=== PATIENT | male | born 1945 | race Caucasian/White ===

== ENCOUNTER 2017-01-13 11:54 | Emergency (ER) ==
[2017-01-13 12:07] VITALS: TEMP 97.7; BMI 34.7
[2017-01-13 12:40] LABS: BASOPHILS % (AUTO) 0.2 % (0.0-3.0); EOSINOPHILS # (AUTO) 0.1 K/ul (0.0-0.7); EOSINOPHILS % (AUTO) 0.4 % (0.0-7.0); HEMATOCRIT 44.7 % (42.0-52.0); HEMOGLOBIN 15.1 g/dl (14.0-18.0); IMMATURE GRANULOCYTE % (AUTO) 0.4 % (0.0-5.0); LYMPHOCYTES # (AUTO) 1.3 K/uL (0.60-3.4); LYMPHOCYTES % (AUTO) 11.4 (10.0-50.0); MEAN CORPUSCULAR HEMOGLOBIN 30.4 pg (27.0-31.0); MEAN CORPUSCULAR HGB CONC 33.8 (31.8-35.4); MEAN CORPUSCULAR VOLUME 89.9 fl (80.0-94.0); MONOCYTES # (AUTO) 0.6 K/uL (0.4-2.0); MONOCYTES % (AUTO) 5.8 (0-10); NEUTROPHILS # (AUTO) 9.1 K/ul (2.0-6.9); NEUTROPHILS % (AUTO) 81.8; PLATELET COUNT 193 10^3/uL (140-440); RED BLOOD COUNT 4.97 10^6/ul (4.70-6.10); WHITE BLOOD COUNT 11.13 K/ul (4.2-10.2)
[2017-01-13 12:53] LABS: ALBUMIN 3.6 g/dL (3.4-5.0); ANION GAP 12.5; BILIRUBIN,TOTAL 0.76 mg/dL (0.00-1.20); BUN/CREATININE RATIO 12.5; CALCIUM 9.8 mg/dL (8.2-10.2); CREATININE 0.96 mg/dL (0.60-1.10); POTASSIUM 4.5 mmol/L (3.5-5.1); TOTAL PROTEIN 7.2 g/dL (5.8-8.1)
--- NOTE | 2017-01-13 13:04 | CT ---
EXAM: CT head without contrast. HISTORY: Headache for 2 weeks. COMPARISON: None available. TECHNIQUE: Multiple axial images of the brain were obtained from the skull base through the vertex without intravenous contrast. FINDINGS: There is no intracranial hemorrhage or extraaxial collection. The gomez-white differentia tion is maintained without evidence for acute large vascular territory infarction. The cortical sul ci and basal cisterns are well visualized. There is no hydrocephalus, mass effect, or midline shift . No mucosal thickening noted throughout the maxillary, ethmoid and sphenoid sinuses, greatest in t he left maxillary and right sphenoid sinus. Otherwise, the paranasal sinuses and mastoid air cells are clear. The calvarium is intact. IMPRESSION: 1. No acute intracranial abnormality. 2. Sinusitis.
[2017-01-13 13:09] LABS: ERYTHROCYTE SEDIMENTATION RATE 27 mm/hr (0-15); ESR INTERNAL QC INTERNAL QC VALID
[2017-01-13] MEDS: ZOFRAN 4 MG/2 ML IM STA (13:11)
[2017-01-13] MEDS: MORPHINE 4 MG/ML SYRINGE IM STA ×2 (13:11→15:08)
--- NOTE | 2017-01-13 13:32 | ED.PDOC ---
General ED Provider: Dr. GLENN ROMERO Chief Complaint: Headache Stated Complaint: HEADACHE Time Seen by Physician: 12:00 Mode of Arrival: Walk-In Information Source: Patient Exam Limitations: No limitations Primary Care Provider: VIJI SENA Nursing and Triage Documentation Reviewed and Agree: Yes Neurological Complaint Exam - Headache Complaint/Exam Onset: Gradual Duration: 14 DAYS Symptoms Are: Still present Timing: Intermittent Episodes Lasting: Weeks (X2) Worst Headache Ever: No Initial Severity: Moderate Current Severity: Mild Location: Diffuse Character: Reports: Typical headache Aggravating: Reports: None Alleviating: Reports: None Associated Signs and Symptoms: Denies: Dizziness, Seizure, Nausea, Vomiting, Sinus pressure, Fever, Neck pain, Neck stiffness, Decreased LOC, Visual changes Related History: Reports: Similar episode Related Surgical History: Reports: None SAH Risk Factors: Reports: None Meningitis Risk Factors: Reports: None Review of Systems - Review Of Systems Constitutional: Reports: No symptoms Eyes: Reports: No symptoms Ears, Nose, Mouth, Throat: Reports: No symptoms Respiratory: Reports: No symptoms Cardiac: Reports: No symptoms GI: Reports: No symptoms : Reports: No symptoms Musculoskeletal: Reports: No symptoms Skin: Reports: No symptoms Neurological: Reports: Headache Endocrine: Reports: No symptoms Hematologic/Lymphatic: Reports: No symptoms All Other Systems: Reviewed and Negative Past Medical History - Past Medical History Previously Healthy: No Endocrine: Reports: None Cardiovascular: Reports: Hypertension Respiratory: Reports: None Hematological: Reports: None Gastrointestinal: Reports: None Genitourinary: Reports: None Neuro/Psych: Reports: None Musculoskeletal: Reports: None Cancer: Reports: None - Surgical History General Surgical History: Reports: Unknown - Family History Family History: Reports: Unknown - Social History Smoking Status: Former smoker Hx Substance Use: No Alcohol Screening: None Physical Exam - Physical Exam Appearance: Well-appearing, No pain distress, Well-nourished Eyes: MAURICE, EOMI, Conjunctiva clear ENT: Ears normal, Nose normal, Oropharynx normal Respiratory: Airway patent, Breath sounds clear, Breath sounds equal, Respirations nonlabored Cardiovascular: RRR, Pulses normal, No rub, No murmur GI/: Soft, Nontender, No masses, Bowel sounds normal, No Organomegaly Musculoskeletal: Normal strength, ROM intact, No edema, No calf tenderness Skin: Warm, Dry, Normal color Neurological: Sensation intact, Motor intact, Reflexes intact, Cranial nerves intact, Alert, Oriented Psychiatric: Affect appropriate, Mood appropriate Physician Notification - Case Discussed Physician Notified: NATHEN Time of Notification: 13:36 (PMD WOULD LIKE TO IMPROVE ON B/P HR DISCUSSED HE WOULD LIKE PT TO FOLLOW UP WITH HIM ON MONDAY) Critical Care Note - Critical Care Note Total Time (mins): 0 Course - Course Hematology/Chemistry: 01/13/17 12:30 01/13/17 12:30 Orders, Labs, Meds: Lab Review 01/13/17 12:30 WBC 11.13 H RBC 4.97 Hgb 15.1 Hct 44.7 MCV 89.9 MCH 30.4 MCHC 33.8 RDW Coeff of Jeromy 12.9 Plt Count 193 Immature Gran % (Auto) 0.4 Neut % (Auto) 81.8 Lymph % (Auto) 11.4 [place] % (Auto) 5.8 Eos % (Auto) 0.4 Baso % (Auto) 0.2 Immature Gran # (Auto) 0.1 Neut # 9.1 H Lymph # 1.3 [place] # 0.6 Eos # 0.1 Baso # 0.0 ESR 27 H Sodium 140 Potassium 4.5 Chloride 99 Carbon Dioxide 33 H Anion Gap 12.5 BUN 12 Creatinine 0.96 Estimated GFR (MDRD) 77.00 BUN/Creatinine Ratio 12.50 Glucose 114 Calcium 9.8 Total Bilirubin 0.76 AST 13 L ALT 12 Alkaline Phosphatase 100 Total Protein 7.2 Albumin 3.6 Globulin 3.6 Albumin/Globulin Ratio 1.00 Orders Category Date Time Status CBC W/ AUTO DIFF Stat LAB 01/13/17 12:30 Completed COMPREHENSIVE METABOLIC PANEL Stat LAB 01/13/17 12:30 Completed ESR Stat LAB 01/13/17 12:30 Completed Azithromycin [Zithromax] MEDS 01/13/17 13:28 Discontinued 500 mg PO ONCE STA Lisinopril [Zestril] MEDS 01/13/17 13:28 Discontinued 20 mg PO ONCE STA Morphine Sulfate [Morphine 4 mg/ml Syringe] MEDS 01/13/17 12:25 Discontinued 4 mg IM ONCE STA Ondansetron HCl/Pf [Zofran 4 mg/2 ml] MEDS 01/13/17 12:25 Discontinued 4 mg IM ONCE STA CT HEAD W/O CONTRAST Stat RADS 01/13/17 12:25 Completed Medications Discontinued Medications Generic Name Dose Route Start Last Admin Trade Name Freq PRN Reason Stop Dose Admin Azithromycin 500 mg 01/13/17 13:28 Zithromax PO 01/13/17 13:29 ONCE STA Lisinopril 20 mg 01/13/17 13:28 Zestril PO 01/13/17 13:29 ONCE STA Morphine Sulfate 4 mg 01/13/17 12:25 01/13/17 13:11 Morphine 4 Mg/Ml Syringe IM 01/13/17 12:26 4 mg ONCE STA Administration Ondansetron HCl 4 mg 01/13/17 12:25 01/13/17 13:11 Zofran 4 Mg/2 Ml IM 01/13/17 12:26 4 mg ONCE STA Administration Vital Signs: Temp Pulse Resp BP Pulse Ox 01/13/17 11:58 97.7 F 47 L 20 215/78 H 96 Departure - Departure Time of Disposition: 14:20 Disposition: HOME SELF-CARE Discharge Problem: Headache Instructions: Hypertension (ED) Condition: Good Pt referred to PMD for follow-up: Yes Additional Instructions: Please call your Family Physician as soon as possible to schedule a follow-up appointment. Allergies/Adverse Reactions: Allergies Penicillins Adverse Reaction (Verified 01/13/17 12:08) Home Medications: Ambulatory Orders Clonidine HCl [Catapres] 0.1 mg PO BID 01/13/17 Lisinopril/Hydrochlorothiazide [Lisinopril-Hctz 10-12.5 mg Tab] 1 each PO DAILY 01/13/17 Metoprolol Succinate [Toprol Xl] 50 mg PO DAILY 01/13/17 Disposition Discussed With: Patient
[2017-01-13] MEDS: ZITHROMAX PO STA (13:42)
[2017-01-13] MEDS: ZESTRIL PO STA (13:42)
[2017-01-13 15:11] VITALS: BP 169/72
== END 2017-01-13 15:17 | disposition home or self-care (01) ==
LOC: ED 11:54
DX: R51 Headache (principal); I10 Essential (primary) hypertension
CPT/HCPCS: 36415; 80053; 85025; 85651; 93005; 93010; 96372; 99283

== ENCOUNTER 2017-03-27 11:57 | Outpatient (CLI) | END 2017-03-27 11:58 | LOC: AMBL 11:57 | PROVIDERS: ATTEND Emergency Medicine | DX: R53.1 Weakness (principal) ==

== ENCOUNTER 2022-07-07 12:46 | Observation (INO) ==
[2022-07-07] MEDS ORDERED: BOOSTRIX IM ONE (12:52)
--- NOTE | 2022-07-07 12:58 | ED.PDOC ---
General ED Provider: Dr. JENNIFER ROTH MD Chief Complaint: Fall Stated Complaint: mild to mod dizzy today and trip and fell striking his face, nose bleed stopped, no malocculsion, no loc, gcs 15, +fatigue, hx htn and atrial fib, no dm, cva or mi Time Seen by Provider: 07/07/22 12:52 Primary Care Provider: VIJI SENA Nursing and Triage Documentation Reviewed and Agree: Yes Does patient meet sepsis criteria?: No System Inflammatory Response Syndrome: Not Applicable Sepsis Protocol: For patient's 13 years and over: Temp is 96.8 and below OR 101 and greater Pulse >90 BPM Resp >20/minute Acutely Altered Mental Status Are patient's symptoms suggestive of a new infection, such as: -Pneumonia -Skin, Soft Tissue -Endocarditis -UTI -Bone, Joint Infection -Implantable Device -Acute Abdominal Infection -Wound Infection -Meningitis -Blood Stream Catheter Infection -Unknown Review of Systems Review Of Systems Constitutional: Reports Weakness; Denies Fever Eyes: Denies Vision change Ears, Nose, Mouth, Throat: Reports Nose pain; Denies Throat pain Respiratory: Denies Short of air Cardiac: Denies Chest pain GI: Denies Abdominal pain : Denies Dysuria Musculoskeletal: Reports Back pain; Denies Neck pain Skin: Reports Bruising; Denies Cyanosis Neurological: Denies Cognitive dysfunction or Headache All Other Systems: Other Physical Exam Physical Exam Appearance: Reports Well-nourished Ill-appearing: Mild Pain Distress: Mild Eyes: Reports MAURICE, EOMI and Conjunctiva clear ENT: Reports Epistaxis (no septal hematoma) Neck: Supple Respiratory: Reports Airway patent, Breath sounds clear and Breath sounds equal Cardiovascular: Reports RRR GI/: Reports Soft and Nontender Musculoskeletal: Reports ROM intact Skin: Reports Warm and Dry Neurological: Reports Cranial nerves intact, Alert and Oriented Psychiatric: Reports Affect appropriate Interpretation Radiology Interpretation Radiology Interpretation By: Radiologist Exam Interpreted: CT Scan Xray Comments: nondisplaced fx left ribs 6,7,8 w/o pneumothorax Xray Comments: possible min endplate fx T3 EKG Interpretation Time of EKG #1: 16:06 Interpretation: atrial fib 92, no stemi Critical Care Note Critical Care Note Total Critical Care Time (mins): 0 Course Course Hematology/Chemistry: 07/07/22 13:00 07/07/22 13:00 Orders, Labs, Meds: Lab Review 10/07/07/22 07/07/22 13:00 13:00 13:00 WBC 7.59 RBC 5.14 Hgb 15.5 Hct 48.5 MCV 94.4 H MCH 30.2 MCHC 32.0 RDW Coeff of Jeromy 13.5 Plt Count 167 Immature Gran % (Auto) 0.8 Neut % (Auto) 73.5 Lymph % (Auto) 16.1 [place] % (Auto) 8.3 Eos % (Auto) 0.9 Baso % (Auto) 0.4 Neut # (Auto) 5.6 Lymph # (Auto) 1.2 [place] # (Auto) 0.6 Eos # (Auto) 0.1 Baso # (Auto) 0.0 Immature Gran # (Auto) 0.1 PT 49.1 H INR 5.10 H* Sodium 138.1 Potassium 4.70 Chloride 100.1 Carbon Dioxide 31.5 H Anion Gap 11.20 BUN 22.5 H Creatinine 1.37 H Estimated GFR (MDRD) 50.00 BUN/Creatinine Ratio 16.42 Glucose 108.1 H Lactic Acid Calcium 9.13 Total Bilirubin 0.64 AST 32.7 ALT 25.3 Alkaline Phosphatase 128.0 H Total Creatine Kinase 40.7 L Troponin I Total Protein 6.92 Albumin 3.86 Globulin 3.06 Albumin/Globulin Ratio 1.26 Urine Color Urine Clarity Urine pH Ur Specific [place] Urine Protein Urine Glucose (UA) Urine Ketones Urine Blood Urine Nitrite Urine Bilirubin Urine Urobilinogen Ur Leukocyte Esterase Urine Microscopic RBC Urine Microscopic WBC Ur Squamous Epith Cells 07/07/22 07/07/22 07/07/22 13:00 13:00 15:00 WBC RBC Hgb Hct MCV MCH MCHC RDW Coeff of Jeromy Plt Count Immature Gran % (Auto) Neut % (Auto) Lymph % (Auto) [place] % (Auto) Eos % (Auto) Baso % (Auto) Neut # (Auto) Lymph # (Auto) [place] # (Auto) Eos # (Auto) Baso # (Auto) Immature Gran # (Auto) PT INR Sodium Potassium Chloride Carbon Dioxide Anion Gap BUN Creatinine Estimated GFR (MDRD) BUN/Creatinine Ratio Glucose Lactic Acid 2.19 H Calcium Total Bilirubin AST ALT Alkaline Phosphatase Total Creatine Kinase Troponin I < 0.012 Total Protein Albumin Globulin Albumin/Globulin Ratio Urine Color Yellow Urine Clarity Clear Urine pH 6.5 Ur Specific [place] 1.015 Urine Protein Negative Urine Glucose (UA) Negative Urine Ketones Negative Urine Blood 2+ H Urine Nitrite Negative Urine Bilirubin Negative Urine Urobilinogen 0.2 Ur Leukocyte Esterase Negative Urine Microscopic RBC 5-10 Urine Microscopic WBC 0-2 Ur Squamous Epith Cells 0-2 Orders Category Date Time Status EKG-(ED ONLY) Stat CARDIO 07/07/22 15:04 Ordered CBC W/ AUTO DIFF Stat LAB 07/07/22 13:00 Completed CMP [COMPREHENSIVE METABOLIC PANEL] Stat LAB 07/07/22 13:00 Completed CPK [CREATINE KINASE] Stat LAB 07/07/22 13:00 Completed LACTIC ACID Stat LAB 07/07/22 13:00 Completed PT WITH INR Stat LAB 07/07/22 13:00 Completed SARS COV-2 RNA RAPID ALLISON Stat LAB 07/07/22 15:46 Completed TROPONIN I Stat LAB 07/07/22 13:00 Completed URINALYSIS C & S IF INDICATED Stat LAB 07/07/22 15:00 Completed Clindamycin Phosphate/D5w [Cleocin 300 mg/50 ml D5w] MEDS 07/07/22 15:01 Discontinued 300 mg in 50 ml IV ONCE Diphth,Pertuss(Acell),Tet Vac [Boostrix] MEDS 07/07/22 12:52 Discontinued 0.5 ml IM .ONCE ONE Sodium Chloride 0.9% [Sodium Chloride] 1,000 ml MEDS 07/07/22 13:22 Discontinued IV BOLUS Sodium Chloride 0.9% [Sodium Chloride] 1,000 ml MEDS 07/07/22 15:[address] ABDOMEN/PELVIS WO CONTRAST Stat RADS 07/07/22 12:[address] CERVICAL SPINE W/O CONTRAST Stat RADS 07/07/22 12:[address] CHEST W/O CONTRAST Stat RADS 07/07/22 12:[address] HEAD W/O CONTRAST Stat RADS 07/07/22 12:[address] LUMBAR SPINE W/O CONTRAST Stat RADS 07/07/22 12:[address] MAXILLOFACIAL W/O CONTRAST Stat RADS 07/07/22 12:[address] THORACIC SPINE W/O CONTRAST Stat RADS 07/07/22 12:52 Completed Medications Generic Name Dose Route Start Last Admin Trade Name Freq PRN Reason Stop Dose Admin Sodium Chloride 1,000 mls @ 75 mls/hr 07/07/22 15:15 07/07/22 15:31 Sodium Chloride IV 07/08/22 04:34 75 mls/hr ONCE ONE Administration Discontinued Medications Generic Name Dose Route Start Last Admin Trade Name Sharmin PRN Reason Stop Dose Admin Diphtheria/Pertussis/Tetanus Vacc 0.5 ml 07/07/22 12:52 07/07/22 13:08 Diphth,Pertuss(Acell),Tet Vac 0.5 Ml Disp.Syrin IM 07/07/22 12:53 0.5 ml .ONCE ONE Administration Sodium Chloride 1,000 mls @ 1,000 mls/hr 07/07/22 13:22 07/07/22 13:39 Sodium Chloride IV 07/07/22 14:21 1,000 mls/hr BOLUS STA Administration Clindamycin Phosphate 300 mg in 50 mls @ 75 mls/hr 07/07/22 15:01 07/07/22 15:13 Cleocin 300 Mg/50 Ml D5w IV 07/07/22 15:40 75 mls/hr ONCE ONE Administration Vital Signs: Temp Pulse Resp BP Pulse Ox 07/07/22 12:49 97.9 F 92 18 160/96 H 94 L Discharge Plan Discharge Patient Disposition: PLACED OBSERVATION Discharge Problem: Multiple rib fractures, Coagulopathy, Weakness, Blunt trauma of face Did you review [place] MALE IMPERSONATOR?: Not Applicable ED Provider: JENNIFER ROTH Condition: Stable Physician Progress Note: treatment and disposition d/w Dr Sean, tele admit obs to the hospitalist []
[2022-07-07 13:07] LABS: BASOPHILS % (AUTO) 0.4 % (0.0-3.0); EOSINOPHILS # (AUTO) 0.1 K/ul (0.0-0.7); EOSINOPHILS % (AUTO) 0.9 % (0.0-7.0); HEMATOCRIT 48.5 % (42.0-52.0); HEMOGLOBIN 15.5 g/dl (14.0-18.0); IMMATURE GRANULOCYTE # (AUTO) 0.1 (0.0-1.0); IMMATURE GRANULOCYTE % (AUTO) 0.8 % (0.0-5.0); LYMPHOCYTES # (AUTO) 1.2 K/uL (0.60-3.4); LYMPHOCYTES % (AUTO) 16.1 (10.0-50.0); MEAN CORPUSCULAR HEMOGLOBIN 30.2 pg (27.0-31.0); MEAN CORPUSCULAR VOLUME 94.4 fl (80.0-94.0); MONOCYTES # (AUTO) 0.6 K/uL (0.4-2.0); MONOCYTES % (AUTO) 8.3 (0-10); NEUTROPHILS # (AUTO) 5.6 K/ul (2.0-6.9); NEUTROPHILS % (AUTO) 73.5 % (42.2-75.2); PLATELET COUNT 167 10^3/uL (140-440); RDW COEFFICIENT OF VARIATION 13.5 % (11.6-14.8); RED BLOOD COUNT 5.14 10^6/ul (4.70-6.10); WHITE BLOOD COUNT 7.59 K/ul (4.2-10.2)
[2022-07-07 13:18] LABS: ALANINE AMINOTRANSFERASE 25.3 U/L (0-50); ALBUMIN 3.86 g/dL (3.5-5.0); ASPARTATE AMINO TRANSFERASE 32.7 U/L (17-59); BILIRUBIN,TOTAL 0.64 mg/dL (0.2-1.3); BLOOD UREA NITROGEN 22.5 mg/dL (9-20); CALCIUM 9.13 mg/dL (8.4-10.2); CARBON DIOXIDE 31.5 mmol/L (22-30.0); CHLORIDE 100.1 mmol/L (98-107); CREATINE KINASE 40.7 U/L (55-170); CREATININE 1.37 mg/dL (0.60-1.10); GLUCOSE 108.1 mg/dL (74-106); POTASSIUM 4.7 mmol/L (3.5-5.1); SODIUM 138.1 mmol/L (134.5-145); TOTAL PROTEIN 6.92 g/dL (6.3-8.2)
[2022-07-07] MEDS ORDERED: SODIUM CHLORIDE 1,000 ML IV STA (13:22)
[2022-07-07 13:28] LABS: PROTHROMBIN TIME 49.1 SEC (9.3-11.0)
--- NOTE | 2022-07-07 13:59 | CT ---
EXAM: CT BRAIN HISTORY: Fall TECHNIQUE: CT brain without intravenous contrast. 5-mm axial sections with Reformations. COMPARISON: 01/13/2017 FINDINGS: The brain was unremarkable for age without evidence of hemorrhage or large vessel distribution rece nt ischemic infarction. There is no suggestion of acute hydrocephalus or subdural fluid collection. No mass or mass effect. Cranium has no acute finding. Mastoid processes are aerated. The visualiz ed paranasal sinuses are clear. IMPRESSION: No acute intracranial process or injury. No fracture. All CT scans are performed using dose optimization techniques as appropriate to the performed exam an d include at least one of the following: Automated exposure control, adjustment of the mA and/or kV according t o size, and the use of iterative reconstruction technique.
--- NOTE | 2022-07-07 14:02 | CT ---
EXAM: CT lumbar spine without contrast. HISTORY: Back injury due to a fall. COMPARISON: None. TECHNIQUE: Multiple axial images of the lumbar spine were obtained without intravenous contrast. Im ages were reformatted in the sagittal and coronal planes. FINDINGS: Alignment normal. There is mild right convex curvature centered near the thoracolumbar ju nction. Moderate loss of disc height at L3-4 and L4-5, greater along the right. Mild loss of disc h eight at L2-3, L1-2, T11-12 and T10-11. Vertebral body heights normal without acute fracture. No thompson bluxation. Multilevel disc osteophyte formation and facet arthropathy present. Multilevel central c anal stenosis, mild at L2-3, moderate at L3-4, severe at L4-5. Multilevel neural foraminal narrowing , severe at L4-5 on the right, moderate to severe L4-5 on the left, moderate L3-4 and L2-3 on the rig ht, mild at L2-3 and L3-4 on the left, and moderate at L5-S1 bilaterally. Paravertebral soft tissues demonstrate no acute abnormality. Atherosclerotic calcifications present. IMPRESSION: No acute abnormality of the lumbar spine. All CT scans are performed using dose optimization techniques as appropriate to the performed exam an d include at least one of the following: Automated exposure control, adjustment of the mA and/or kV according t o size, and the use of iterative reconstruction technique.
--- NOTE | 2022-07-07 14:04 | CT ---
EXAM: CT cervical spine. HISTORY: Fall TECHNIQUE: CT cervical spine without contrast. Detailed axial sections. Coronal and sagittal re-fo rmations. COMPARISON: None FINDINGS: No acute fracture is seen. Vertebral body heights are maintained. There is no spondyloli sthesis. Facet joints are covered. The lateral masses of C1 and C2 are normally aligned and the odo ntoid process is intact. Diffuse degenerative disc and facet disease is present, most apparent at C4 - C7 where there is facet arthropathy and posterior disc osteophyte complexes leading to mild centra l canal stenosis and bilateral neural foraminal narrowing. There is no traumatic central canal steno sis or paraspinal hematoma. IMPRESSION: 1. No acute osseous abnormality of the cervical spine. 2. Degenerative disc and facet disease. All CT scans are performed using dose optimization techniques as appropriate to the performed exam an d include at least one of the following: Automated exposure control, adjustment of the mA and/or kV according t o size, and the use of iterative reconstruction technique.
--- NOTE | 2022-07-07 14:08 | CT ---
EXAM: CT of the face without contrast TECHNIQUE: CT of the face was performed without IV contrast. Multiplanar reformats were made. HISTORY: Fall. COMPARISON: CT head 01/13/2017. FINDINGS: Facial bones: No acute fracture demonstrated. Sinuses: Mild mucosal thickening in the paranasal sinuses. Mucous retention cysts in the maxillary s inuses bilaterally. Mastoid air cells are clear. Orbits: Bilateral lens replacements of the globes. No globe rupture or retrobulbar hemorrhage. Soft tissues: Atherosclerotic calcifications of the carotid siphons and carotid bifurcations bilatera lly. Bilateral tonsillar calcifications. IMPRESSION: No acute facial bone fracture. All CT scans are performed using dose optimization techniques as appropriate to the performed exam an d include at least one of the following: Automated exposure control, adjustment of the mA and/or kV according t o size, and the use of iterative reconstruction technique.
--- NOTE | 2022-07-07 14:11 | CT ---
EXAM: CT Abdomen without contrast. CT Pelvis without contrast. HISTORY: Abdominal trauma. COMPARISON: None. TECHNIQUE: Multiple axial images of the abdomen and pelvis were obtained without intravenous contras t. Images were reformatted in the sagittal and coronal plane. FINDINGS: Please note that evaluation of the abdominal and pelvic structures is limited due to lack of intravenous contrast. Heart enlarged. Trace pericardial effusion. Trace bilateral pleural effusions. [facility] for thoracic findings. Degenerative changes throughout the spine. Subtle linear opacity left lateral left sixth rib sagitta l image 69 and seventh rib axial image 11. There is subtle cortical angulation left eighth rib axial image 22. Probable old left ninth rib fracture axial image 19. Gallbladder absent. Liver, pancreas, spleen, adrenal glands, and kidneys demonstrate no acute abnorm ality. There is no bowel obstruction or acute inflammation. Appendix normal. Fatty umbilical hernia withou t inflammation. Bladder normal. No focal prostate abnormality. No free fluid or free air. Atherosclerotic calcifications without abdominal aortic aneurysm. IMPRESSION: 1. No acute post-traumatic abnormality of the abdomen or pelvis.. 2. Nondisplaced left lateral sixth through eighth fractures. All CT scans are performed using dose optimization techniques as appropriate to the performed exam an d include at least one of the following: Automated exposure control, adjustment of the mA and/or kV according t o size, and the use of iterative reconstruction technique.
--- NOTE | 2022-07-07 14:12 | CT ---
EXAM: CT thoracic spine without contrast. HISTORY: Back injury. COMPARISON: Chest radiograph 09/14/2020. TECHNIQUE: Multiple axial images of the thoracic spine were obtained without intravenous contrast. Images were reformatted in the sagittal and coronal planes. FINDINGS: Minimal superior endplate compression deformity of T3, sagittal image 26. Vertebral body heights otherwise normal. Curvature and alignment normal. Mild loss of disc height at multiple leve ls with mild endplate osteophyte formation. Multilevel anterolateral bridging osteophytes at multipl e levels as well consistent with diffuse idiopathic skeletal hyperostosis. Trace amount of pleural f luid bilaterally. No visible pneumothorax. Atherosclerotic calcifications present. IMPRESSION: Minimal T3 superior endplate compression deformity which is age indeterminate. All CT scans are performed using dose optimization techniques as appropriate to the performed exam an d include at least one of the following: Automated exposure control, adjustment of the mA and/or kV according t o size, and the use of iterative reconstruction technique.
--- NOTE | 2022-07-07 14:29 | CT ---
EXAM: CHEST CT WITHOUT CONTRAST HISTORY: Fall. TECHNIQUE: CT acquisition of the chest from the thoracic inlet to the upper abdomen without IV contra st administration. CT Dose Reduction Techniques Performed: Yes. COMPARISON: Chest radiograph 09/14/2020. FINDINGS: Lines, Tubes, Devices: None. Lung Parenchyma and Airways: Central airways are patent. Mild interstitial thickening and centrilobul ar ground-glass mostly in the upper lobes. Peripheral airway thickening in the upper lobes. Mild dep endent atelectasis. Pleural Space: No pleural effusion. No pleural thickening. No pneumothorax. Thoracic Inlet, Mediastinum, and Kristina: Thyroid gland is normal. Calcified granulomas and mediastinal hilar lymph nodes. Heart, Vessels, and Pericardium: No evidence of aortic injury. Mild cardiomegaly with a dilated left atrium. Trace pericardial fluid. Coronary artery calcifications. Scattered atherosclerotic calcificat ions in the aorta and great arch vessels. Bones and Soft Tissues: Nondisplaced left sixth through eighth rib fractures. Diffuse idiopathic ske letal hyperostosis. Nondisplaced fracture through the anterior cortex and vertebral body at T7. No visible fracture of the posterior elements. Slight superior endplate compression of the T3 vertebral body. Chronic-appearing left ninth rib fracture. Multilevel spondylosis. No chest wall hematoma. Upper Abdomen: Calcified granulomas in the liver and spleen. Post cholecystectomy. Also see concurr ent CT of the abdomen and pelvis. IMPRESSION: Nondisplaced left sixth - eighth rib fractures. No pneumothorax. Nondisplaced fracture through the T7 vertebral body in the setting of diffuse idiopathic skeletal hyp erostosis is concerning for "chalk stick" fracture. MRI of the thoracic spine recommended to evaluat e for additional injuries. Mild superior endplate compression deformity at T3, could be an acute fracture. Findings in the upper lobes could represent pulmonary edema or inhalation related inflammatory proces s. Atherosclerosis with coronary artery calcifications. All CT scans are performed using dose optimization techniques as appropriate to the performed exam an d include at least one of the following: Automated exposure control, adjustment of the mA and/or kV according t o size, and the use of iterative reconstruction technique.
[2022-07-07] MEDS ORDERED: CLEOCIN 300 MG/50 ML D5W 300 MG/50 ML BAG IV ONE ×2 (15:01→16:16)
[2022-07-07 15:06] LABS: BILIRUBIN,URINE Negative (NEGATIVE); CLARITY,URINE Clear (CLEAR); COLOR,URINE Yellow (YELLOW); GLUCOSE, URINE (UA) Negative (NEGATIVE); KETONES,URINE Negative (NEGATIVE); LEUKOCYTE ESTERASE ,URINE Negative (NEGATIVE); NITRITE,URINE Negative (NEGATIVE); PH,URINE 6.5 (5-9); PROTEIN,URINE Negative (NEGATIVE); URINE, BLOOD 2+ (NEGATIVE); UROBILINOGEN,URINE 0.2 (0.2)
[2022-07-07 15:11] LABS: SQUAMOUS EPITHELIAL CELL,UR 0-2 (0-5); URINE WBC, MICROSCOPIC 0-2 (0-2)
[2022-07-07] MEDS ORDERED: SODIUM CHLORIDE 1,000 ML IV ONE (15:15)
[2022-07-07] MEDS ORDERED: TYLENOL PO PRN (16:16)
[2022-07-07 20:05] VITALS: BMI 33.4
[2022-07-07] MEDS: BUSPAR PO SCH (21:04)
[2022-07-07] MEDS: SODIUM CHLORIDE 1,000 ML IV SCH (21:07)
[2022-07-08 05:55] LABS: TROPONIN I < 0.012 ng/ml (0.0000-0.120)
[2022-07-08 06:30] LABS: BASOPHILS % (AUTO) 0.3 % (0.0-3.0); EOSINOPHILS # (AUTO) 0.1 K/ul (0.0-0.7); EOSINOPHILS % (AUTO) 1.2 % (0.0-7.0); HEMATOCRIT 48.5 % (42.0-52.0); HEMOGLOBIN 15.5 g/dl (14.0-18.0); IMMATURE GRANULOCYTE % (AUTO) 0.4 % (0.0-5.0); LYMPHOCYTES # (AUTO) 1.5 K/uL (0.60-3.4); LYMPHOCYTES % (AUTO) 13.7 (10.0-50.0); MEAN CORPUSCULAR HEMOGLOBIN 30.6 pg (27.0-31.0); MEAN CORPUSCULAR VOLUME 95.8 fl (80.0-94.0); MONOCYTES % (AUTO) 9.2 (0-10); NEUTROPHILS % (AUTO) 75.2 % (42.2-75.2); PLATELET COUNT 146 10^3/uL (140-440); RDW COEFFICIENT OF VARIATION 13.7 % (11.6-14.8); RED BLOOD COUNT 5.06 10^6/ul (4.70-6.10); WHITE BLOOD COUNT 10.64 K/ul (4.2-10.2)
[2022-07-08 06:51] LABS: ALBUMIN 3.6 g/dL (3.5-5.0); BILIRUBIN,TOTAL 1.4 mg/dL (0.2-1.3); CALCIUM 8.5 mg/dL (8.4-10.2); CREATININE 1.1 mg/dL (0.60-1.10); POTASSIUM 4.4 mmol/L (3.5-5.1); TOTAL PROTEIN 6.3 g/dL (6.3-8.2)
[2022-07-08 07:48] LABS: PROTHROMBIN TIME 47.6 SEC (9.3-11.0)
[2022-07-08] MEDS: BUSPAR PO SCH ×2 (08:44→20:12)
[2022-07-08] MEDS: TOPROL XL PO SCH (08:44)
[2022-07-08] MEDS ORDERED: NORCO 5-325 PO PRN (08:53)
[2022-07-08] MEDS ORDERED: LISINOPRIL HYDROCHLOROTHIAZIDE PO SCH (09:30)
[2022-07-08] MEDS: SODIUM CHLORIDE 1,000 ML IV SCH ×2 (09:31→20:13)
[2022-07-08] MEDS: LASIX TAB PO SCH (09:49)
[2022-07-08] MEDS: ZESTRIL PO SCH (09:49)
--- NOTE | 2022-07-08 10:04 | PCM.PROG ---
Date Seen by Provider: 07/08/22 Time Seen by Provider: 09:10 Subjective: Patient with left sided chest pain with movement and deep inspiration. Denies dyspnea. He remains weak;patient was recently discharged from the hospital after a two week admission for generalized muscle weakness. Tolerating diet. Objective: Vitals: T=97.9 F, P=88, R=18, ZX=360/75, SPO2=96 Chronically ill appearing elderly male. He appears to be weak. Facial abrasions and ecchymosis as well as right sided facial swelling. HEENT: []Oral mucosa moist. Occlusion normal. Neck: []Supple and nontender. Lungs: [] Chest clear and BS equal though decreased on the left side. Moderate left side chest wall tenderness. No crepitus. CVS: [] Atrial fibrillation Abdomen: []Soft, nontender. Extremities: [] Neurological: []Alert and oriented. Skin: [] Lab/Tests/Diagnostic Imaging: [] (1) Multiple rib fractures: Status: Acute Code(s): S22.49XA - Multiple fractures of ribs, unspecified side, initial encounter for closed fracture SNOMED Code(s): 4177860 (2) Coagulopathy: Status: Acute Code(s): D68.9 - Coagulation defect, unspecified SNOMED Code(s): 08531196 (3) Weakness: Status: Acute Code(s): R53.1 - Weakness SNOMED Code(s): 83329434 (4) Blunt trauma of face: Status: Acute Code(s): S09.93XA - Unspecified injury of face, initial encounter SNOMED Code(s): 975422822 Plan: Repeat CXR. Vitamin K for coagulopathy related to warfarin therapy. Will ask PT to see for strengthening and conditioning. Attempt to mobilize patient.
[2022-07-08] MEDS ORDERED: VITAMIN K SUBCUT ONE (10:31)
[2022-07-08] MEDS ORDERED: MEPHYTON PO ONE (12:00)
--- NOTE | 2022-07-08 12:00 | RS.PTINEVL ---
Subjective - Patient information Date of Evaluation: 07/08/22 Date of Arrival on Unit: 07/07/22 Admitted From:: Home Diagnosis: s/p fall, weakness, rib fx Usual Living Arrangement: With Spouse Home Environment: House, Stairs (few) Medical History: Hypertension, CVA/TIA, Diabetes Medical History Comments:: afib, T3 and T7comp fx , rib fx Medications: see chart Subjective Information/ Patient Comments:: pt states that he fell at home. pt is poor historian unable to state whether or not he was using cane or wx. pt only c/o soreness with movement. - Level of function Prior to this admission, the patient could do the following:: Independent Selfcare, Independent ADL's, Independent Ambulation, Participated in Social Activities Outside home Current Level of Function: Partially Dependent Current Equipment Used at Home: pt states he has a walker and cane at home Interventions - Objective Patient Orientation: Person, Place Current Interventions: IV's, Telemetry Observation: pt with swelling to R side of face, bruising Range of Motion - ROM Right Upper Extremity AROM: WFL's Left Upper Extremity AROM: WFL's Right Lower Extremity AROM: WFL's Left Lower Extremity AROM: WFL's Muscle Strength - Muscle Strength Right Upper Extremity Strength: Mild Weakness (grossly 4/5) Left Upper Extremity Strength: Mild Weakness (grossly 4/5) Right Lower Extremity Strength: Mild Weakness (hip flex 4/5, knee flex/ext 4/5, ankle DF/PF 4/5) Left Lower Extremity Strength: Mild Weakness (hip flex 4/5, knee flex/ext 4/5, ankle DF/PF 4/5) Sensation - Sensation Right Upper Extremity Sensation: Intact/Normal Left Upper Extremity Sensation: Intact/Normal Right Lower Extremity Sensation: Intact/Normal Left Lower Extremity Sensation: Intact/Normal Palpation Palpation Findings: Tenderness (tenderness to ribs, face due to fx and bruising) Balance - Sitting Balance and Reactions Static Sitting Balance: Good Dynamic Sitting Balance: Fair - Standing Balance and Reactions Static Standing Balance: Fair (fair-) Dynamic Standing Balance: Poor Standing Equilibrium Reactions: Delayed Left, Delayed Right Standing Protective Reactions: Delayed Left, Delayed Right - Comments Balance Assessment Comments: pt with no scratches or bruising to hands (possible no protective reaction) Functional Mobility - Bed Mobility Comments:: pt seen up in chair. - Transfers Sit to Stand: CGA, Min Assist Stand to Sit: CGA, Min Assist - Safety Awareness Safety Awareness: Poor WILLIAN INDEX SCORE: n/a Ambulation - Ambulation Assistive Device Used: Rolling Walker Orthotic/Prosthetic Device: No Distance: 30ft Assistance needed with Ambulation: Min Assist, 1 person assist Gait Deviations: Forward posture, Short stride, Deviates from path Ambulation Comments: pt occasionally leans to the right Factors Affecting Ambulation: Decreased Balance, Weakness, Decreased Coordination, Decreased Safety, Cognitive Status, Limited Endurance Treatment time - Time with patient Length of Evaluation: 19 Total treatment time: 31 Patient Education - Education Patient Education: Activity Modification, Education of Plan of Care Teaching Recipient: Patient Teaching Methods: Discussion, Demonstration Comments: discussion regarding POC and safety with rwx. Demonstrated proper gait technique with rwx. Assessment - Assessment Problem List:: Decreased level of function, Requires training/education, Decreased safety/Risk of falls, Weakness, Cognitive status limits abilities Rehab Potential: Fair Further Therapy Indicated?: Yes Candidate for Swing Bed for Therapy Services?: Would need to reassess at later date. Evaluation Complexity: HISTORY: Medium, EXAM OF BODY SYSTEMS: Medium, CLINICAL PRESENTATION: Medium, CLINICAL DECISION MAKING: Medium Patient's Goal(s): Be able to walk and take care of myself. Short Term Goals GOAL #1: pt independent with rolling and scooting in bed. Goal to be met by: 07/11/22 GOAL #2: Transfer sup to/from sit min x 1 Goal to be met by: 07/11/22 GOAL #3: Transfer sit to/from stand CGA x 1 Goal to be met by: 07/11/22 GOAL #4: pt amb 50ft with rwx with improved posture and no LOB CGA Goal to be met by: 07/11/22 GOAL #5: Improve strength BLE 4 to 4+/5 Goal to be met by: 07/11/22 Group Home Goals GOAL #1: Transfer sup to/from sit to/from stand SBA Goal to be met by: 07/13/22 GOAL #2: pt amb functional household distances with appr AD SBA. Goal to be met by: 07/13/22 GOAL #3: Dynamic stand balance fair Goal to be met by: 07/13/22 Plan Plan of Care: Therapeutic EX, Neuromuscular Re-Educ, Therapeutic Activity, Self- Care/Home Management Other:: gait training Frequency of Treatment: 1-2 X day, as tolerated Duration of Treatment: 5 days Anticipated Discharge Destination: Home Treatment Diagnosis (ICD 10 Codes): impaired balance R 26.81. difficulty walking R26.2. weakness M62.81. h/o falling R29.6 Has the Physician been added for Co-signature?: Yes
--- NOTE | 2022-07-08 12:11 | DI ---
EXAM: Chest one view HISTORY: Rib fractures COMPARISON: The CT 07/07/2022 TECHNIQUE: Single view of the chest was performed FINDINGS: Rib fractures described on CT are not clearly identified on radiograph. No visible pneumo thorax. Possible trace pleural effusions. Mild hazy opacity in the right mid lung. Heart is enlarge d. Mediastinal contour normal, noting atherosclerosis IMPRESSION: 1. No fractures seen on CT are not clearly identified. 2. Possible trace pleural effusions. 3. Mild hazy opacity in the right lung may correlate with ground-glass described on CT. 4. Cardiomegaly
--- NOTE | 2022-07-08 16:30 | RS.OTINEVL ---
Subjective - Patient information Date of Evaluation: 07/08/22 Date of Arrival on Unit: 07/07/22 Admitted From:: Home Diagnosis: Rib Fx 6-7-8, Weakness, Facial injury, coagulopathy PRECAUTIONS: Fall risk Usual Living Arrangement: With Spouse Living Arrangement Comments: Lives with Home Environment: House, Stairs (few) Medical History: Hypertension, CVA/TIA, Diabetes Medical History Comments:: afib, T3 and T7comp fx , rib fx Medications: see chart Subjective Information/ Patient Comments:: Pt reports he lives with his . - Level of function Prior to this admission, the patient could do the following:: Independent Selfcare, Independent ADL's, Independent Ambulation, Participated in Social Activities Outside home Abilities prior to this admission: Pt has a walker at home but would use the cane. Current Level of Function: Partially Dependent Current Equipment Used at Home: pt states he has a walker and cane at home Pain Assessment - Pain Side: right Pain Aggravating Factors: Changing Position Pain Alleviating Factors: Medication Interventions - Objective Patient Orientation: Person, Situation Current Interventions: IV's, Telemetry Observation: Pt has cuts and scrapes all over his face. Pt has a cut on his lip and his right eye is bloody looking. Interventions - ROM Right Upper Extremity AROM: Slight limitation Left Upper Extremity AROM: Slight limitation - Strength Right Upper Extremity Strength: Mild Weakness Left Upper Extremity Strength: Mild Weakness - Sensation Right Upper Extremity Sensation: Intact/Normal Left Upper Extremity Sensation: Intact/Normal Balance - Sitting Balance Static Sitting Balance: Fair Dynamic Sitting Balance: Fair - Standing Balance Static Standing Balance: Poor Dynamic Standing Balance: Poor - Comments Balance Assessment Comments: Pt leans to the right with RW. ADL Skills - Self Feeding Self Feeding: Set Up Only - Grooming Grooming: Min Assist Grooming Set-up: Sitting - Dressing Dressing UE: Min Assist Dressing LE: Mod Assist - Toilet Management Toilet Hygiene: Independent Toilet Clothing Management: Min Assist Functional Mobility - Transfers Sit to Stand: Min Assist Stand to Sit: Min Assist Stand Pivot Transfers: Min Assist - Ambulation Weight Bearing Status: FWB Assistive Device Used: Rolling Walker Assistance needed with Ambulation: Min Assist - Safety Awareness Safety Awareness: Fair WILLIAN INDEX SCORE: . Additional Treatment Performed - Time with patient Length of Evaluation: 18 Total treatment time: 20 Activities Do you enjoy playing games?: Yes Would you be interested in leaving your room for activities?: Yes Would you enjoy group activities?: Yes Do you have difficulty with your vision?: Yes Patient Interests:: Watching Television Patient Education Patient Education: Body/Joint mechanics, Home Exercise Program, Education of Plan of Care Teaching Recipient: Patient Teaching Methods: Discussion, Demonstration Assessment Problem List:: Decreased level of function, Requires training/education, Decreased safety/Risk of falls, Weakness, Pain limits previous level of function Rehab Potential: Good Further Therapy Indicated?: Yes Evaluation Complexity: HISTORY: Medium, EXAM OF BODY SYSTEMS: Medium, CLINICAL DECISION MAKING: Medium Patient's Goal(s): To get stronger where he can go home. Short Term Goals - Goals GOAL 1: Pt to be CGA with toilet transfers. Goal to be met by: 07/11/22 GOAL 2: Pt to increase activity tolerance to 15 minutes. Goal to be met by: 07/11/22 GOAL 3: Pt to increase strength to 4/5. Goal to be met by: 07/11/22 Director Trading Goals GOAL 1: Pt to be independent with self cares. Goal to be met by: 07/14/22 GOAL 2: Pt to increase activity to 20 minutes to complete ADLS. Goal to be met by: 07/14/22 GOAL 3: Pt to increase BUE strength to 4+/5. Goal to be met by: 07/14/22 Plan Plan of Care: Therapeutic EX, Therapeutic Activity, Self-Care/Home Management Frequency of Treatment: 1-2 X day, as tolerated Duration of Treatment: 1 Week Anticipated Discharge Destination: Home Treatment Diagnosis (ICD 10 Codes): Weakness R53.1, Z74.1 Need for assistance with personal care. Has the Physician been added for Co-signature?: Yes
[2022-07-08] MEDS ORDERED: ELAVIL PO SCH (21:00)
[2022-07-08 23:12] VITALS: TEMP 97.8
[2022-07-09] MEDS: LASIX TAB PO SCH (05:33)
[2022-07-09 05:42] VITALS: BP 153/92
[2022-07-09 06:46] LABS: BASOPHILS % (AUTO) 0.4 % (0.0-3.0); EOSINOPHILS # (AUTO) 0.1 K/ul (0.0-0.7); EOSINOPHILS % (AUTO) 0.8 % (0.0-7.0); HEMATOCRIT 46.8 % (42.0-52.0); HEMOGLOBIN 15.2 g/dl (14.0-18.0); IMMATURE GRANULOCYTE % (AUTO) 0.4 % (0.0-5.0); LYMPHOCYTES # (AUTO) 1.5 K/uL (0.60-3.4); LYMPHOCYTES % (AUTO) 13.8 (10.0-50.0); MEAN CORPUSCULAR HEMOGLOBIN 30.3 pg (27.0-31.0); MEAN CORPUSCULAR HGB CONC 32.5 (31.8-35.4); MEAN CORPUSCULAR VOLUME 93.4 fl (80.0-94.0); MONOCYTES # (AUTO) 0.9 K/uL (0.4-2.0); MONOCYTES % (AUTO) 8.3 (0-10); NEUTROPHILS # (AUTO) 8.1 K/ul (2.0-6.9); NEUTROPHILS % (AUTO) 76.3 % (42.2-75.2); PLATELET COUNT 147 10^3/uL (140-440); RDW COEFFICIENT OF VARIATION 13.4 % (11.6-14.8); RED BLOOD COUNT 5.01 10^6/ul (4.70-6.10); WHITE BLOOD COUNT 10.66 K/ul (4.2-10.2)
[2022-07-09 06:55] LABS: ALANINE AMINOTRANSFERASE 19.8 U/L (0-50); ALBUMIN 3.54 g/dL (3.5-5.0); ALKALINE PHOSPHATASE 105.1 U/L (56-119); ASPARTATE AMINO TRANSFERASE 24.4 U/L (17-59); BILIRUBIN,TOTAL 1.71 mg/dL (0.2-1.3); CALCIUM 8.7 mg/dL (8.4-10.2); CARBON DIOXIDE 32.8 mmol/L (22-30.0); CHLORIDE 102.8 mmol/L (98-107); GLUCOSE 97.8 mg/dL (74-106); POTASSIUM 4.05 mmol/L (3.5-5.1); SODIUM 139.9 mmol/L (134.5-145); TOTAL PROTEIN 6.48 g/dL (6.3-8.2)
[2022-07-09 07:03] LABS: PROTHROMBIN TIME 19.2 SEC (9.3-11.0)
[2022-07-09] MEDS: TOPROL XL PO SCH (09:10)
[2022-07-09] MEDS: BUSPAR PO SCH (09:10)
[2022-07-09] MEDS: ZESTRIL PO SCH (09:10)
[2022-07-09] MEDS: SODIUM CHLORIDE 1,000 ML IV SCH (10:21)
--- NOTE | 2022-07-09 17:58 | PCM.DC ---
Final Diagnosis: Facial contusions. Left rib fractures. Excessive anticoagulation Date of admit - 07/07/2022 Date of discharge - 07/09/2022 Physical Exam Appearance: Well-appearing and Other (right side facial contusions and abrasions) Ill-appearing: None Pain Distress: None Eyes: MAURICE ENT: Oropharynx normal Neck: Supple Respiratory: Airway patent, Breath sounds clear and Other (TTP left chest wall) Cardiovascular: Pulses normal GI/: Soft and Nontender Musculoskeletal: Normal strength and ROM intact Skin: Warm and Dry Neurological: Sensation intact, Motor intact and Alert Psychiatric: Affect appropriate and Mood appropriate (1) Multiple rib fractures: Status: Acute Code(s): S22.49XA - Multiple fractures of ribs, unspecified side, initial encounter for closed fracture SNOMED Code(s): 6633282 (2) Coagulopathy: Status: Acute Code(s): D68.9 - Coagulation defect, unspecified SNOMED Code(s): 09831512 (3) Weakness: Status: Acute Code(s): R53.1 - Weakness SNOMED Code(s): 09452199 (4) Blunt trauma of face: Status: Acute Code(s): S09.93XA - Unspecified injury of face, initial encounter SNOMED Code(s): 198252276 Reason for Hospitalization: Lost his balance and fell, facial abrasions/contusions and left rib fx's. Admit for pain control. Incidental finding of elevated INR on coumadin. Prognosis/Condition at Discharge: Good. Stable. Medications at Discharge: Medications at Discharge (Home Meds & RX) metoprolol succinate 50 mg tablet,extended release 24 hr (Toprol XL) 100 mg PO DAILY 01/13/17 amitriptyline 25 mg tablet 25 mg PO BEDTIME 07/07/22 buspirone 15 mg tablet 7.5 mg PO BID 07/07/22 furosemide 20 mg tablet 20 mg PO QAM 07/07/22 warfarin 5 mg tablet 5 mg PO DAILY 07/07/22 lisinopril 10 mg tablet 10 mg PO DAILY 07/08/22 He declined any pain med. Lab/Diagnostics: Laboratory Tests 07/07/22 07/07/22 07/07/22 13:00 13:00 13:00 WBC 7.59 RBC 5.14 Hgb 15.5 Hct 48.5 MCV 94.4 H MCH 30.2 MCHC 32.0 RDW Coeff of Jeromy 13.5 Plt Count 167 Immature Gran % (Auto) 0.8 Neut % (Auto) 73.5 Lymph % (Auto) 16.1 Snyder % (Auto) 8.3 Eos % (Auto) 0.9 Baso % (Auto) 0.4 Neut # (Auto) 5.6 Lymph # (Auto) 1.2 Snyder # (Auto) 0.6 Eos # (Auto) 0.1 Baso # (Auto) 0.0 Immature Gran # (Auto) 0.1 PT 49.1 H INR 5.10 H* Sodium 138.1 Potassium 4.70 Chloride 100.1 Carbon Dioxide 31.5 H Anion Gap 11.20 BUN 22.5 H Creatinine 1.37 H Estimated GFR (MDRD) 50.00 BUN/Creatinine Ratio 16.42 Glucose 108.1 H Lactic Acid Calcium 9.13 Total Bilirubin 0.64 AST 32.7 ALT 25.3 Alkaline Phosphatase 128.0 H Total Creatine Kinase 40.7 L POC Venous Troponin I Troponin I Total Protein 6.92 Albumin 3.86 Globulin 3.06 Albumin/Globulin Ratio 1.26 Urine Color Urine Clarity Urine pH Ur Specific [place] Urine Protein Urine Glucose (UA) Urine Ketones Urine Blood Urine Nitrite Urine Bilirubin Urine Urobilinogen Ur Leukocyte Esterase Urine Microscopic RBC Urine Microscopic WBC Ur Squamous Epith Cells SARS CoV-2 RNA Rapid ALLISON 07/07/22 07/07/22 07/07/22 13:00 13:00 15:00 WBC RBC Hgb Hct MCV MCH MCHC RDW Coeff of Jeromy Plt Count Immature Gran % (Auto) Neut % (Auto) Lymph % (Auto) Snyder % (Auto) Eos % (Auto) Baso % (Auto) Neut # (Auto) Lymph # (Auto) Snyder # (Auto) Eos # (Auto) Baso # (Auto) Immature Gran # (Auto) PT INR Sodium Potassium Chloride Carbon Dioxide Anion Gap BUN Creatinine Estimated GFR (MDRD) BUN/Creatinine Ratio Glucose Lactic Acid 2.19 H Calcium Total Bilirubin AST ALT Alkaline Phosphatase Total Creatine Kinase POC Venous Troponin I Troponin I < 0.012 Total Protein Albumin Globulin Albumin/Globulin Ratio Urine Color Yellow Urine Clarity Clear Urine pH 6.5 Ur Specific [place] 1.015 Urine Protein Negative Urine Glucose (UA) Negative Urine Ketones Negative Urine Blood 2+ H Urine Nitrite Negative Urine Bilirubin Negative Urine Urobilinogen 0.2 Ur Leukocyte Esterase Negative Urine Microscopic RBC 5-10 Urine Microscopic WBC 0-2 Ur Squamous Epith Cells 0-2 SARS CoV-2 RNA Rapid ALLISON 07/07/22 07/07/22 07/08/22 15:46 22:40 06:23 WBC 10.64 H RBC 5.06 Hgb 15.5 Hct 48.5 MCV 95.8 H MCH 30.6 MCHC 32.0 RDW Coeff of Jeromy 13.7 Plt Count 146 Immature Gran % (Auto) 0.4 Neut % (Auto) 75.2 Lymph % (Auto) 13.7 Snyder % (Auto) 9.2 Eos % (Auto) 1.2 Baso % (Auto) 0.3 Neut # (Auto) 8.0 H Lymph # (Auto) 1.5 Snyder # (Auto) 1.0 Eos # (Auto) 0.1 Baso # (Auto) 0.0 Immature Gran # (Auto) 0.0 PT INR Sodium Potassium Chloride Carbon Dioxide Anion Gap BUN Creatinine Estimated GFR (MDRD) BUN/Creatinine Ratio Glucose Lactic Acid Calcium Total Bilirubin AST ALT Alkaline Phosphatase Total Creatine Kinase POC Venous Troponin I 0.00 Troponin I < 0.012 Total Protein Albumin Globulin Albumin/Globulin Ratio Urine Color Urine Clarity Urine pH Ur Specific [place] Urine Protein Urine Glucose (UA) Urine Ketones Urine Blood Urine Nitrite Urine Bilirubin Urine Urobilinogen Ur Leukocyte Esterase Urine Microscopic RBC Urine Microscopic WBC Ur Squamous Epith Cells SARS CoV-2 RNA Rapid ALLISON Negative 07/08/22 07/08/22 07/08/22 06:23 06:23 06:23 WBC RBC Hgb Hct MCV MCH MCHC RDW Coeff of Jeromy Plt Count Immature Gran % (Auto) Neut % (Auto) Lymph % (Auto) Snyder % (Auto) Eos % (Auto) Baso % (Auto) Neut # (Auto) Lymph # (Auto) Snyder # (Auto) Eos # (Auto) Baso # (Auto) Immature Gran # (Auto) PT 47.6 H INR 4.94 H* Sodium 141.0 Potassium 4.40 Chloride 101.0 Carbon Dioxide 36.0 H Anion Gap 8.40 BUN 20.0 Creatinine 1.10 Estimated GFR (MDRD) 65.00 BUN/Creatinine Ratio 18.18 Glucose 99.0 Lactic Acid Calcium 8.50 Total Bilirubin 1.40 H AST 28.0 ALT 22.0 Alkaline Phosphatase 109.0 Total Creatine Kinase POC Venous Troponin I Troponin I < 0.012 Total Protein 6.30 Albumin 3.60 Globulin 2.70 Albumin/Globulin Ratio 1.33 Urine Color Urine Clarity Urine pH Ur Specific [place] Urine Protein Urine Glucose (UA) Urine Ketones Urine Blood Urine Nitrite Urine Bilirubin Urine Urobilinogen Ur Leukocyte Esterase Urine Microscopic RBC Urine Microscopic WBC Ur Squamous Epith Cells SARS CoV-2 RNA Rapid ALLISON 07/09/22 07/09/22 07/09/22 06:40 06:40 06:40 WBC 10.66 H RBC 5.01 Hgb 15.2 Hct 46.8 MCV 93.4 MCH 30.3 MCHC 32.5 RDW Coeff of Jeromy 13.4 Plt Count 147 Immature Gran % (Auto) 0.4 Neut % (Auto) 76.3 H Lymph % (Auto) 13.8 Snyder % (Auto) 8.3 Eos % (Auto) 0.8 Baso % (Auto) 0.4 Neut # (Auto) 8.1 H Lymph # (Auto) 1.5 Snyder # (Auto) 0.9 Eos # (Auto) 0.1 Baso # (Auto) 0.0 Immature Gran # (Auto) 0.0 PT 19.2 H D INR 1.91 D Sodium 139.9 Potassium 4.05 Chloride 102.8 Carbon Dioxide 32.8 H Anion Gap 8.35 BUN 20.0 Creatinine 1.00 Estimated GFR (MDRD) 72.00 BUN/Creatinine Ratio 20.00 Glucose 97.8 Lactic Acid Calcium 8.70 Total Bilirubin 1.71 H AST 24.4 ALT 19.8 Alkaline Phosphatase 105.1 Total Creatine Kinase POC Venous Troponin I Troponin I Total Protein 6.48 Albumin 3.54 Globulin 2.94 Albumin/Globulin Ratio 1.20 Urine Color Urine Clarity Urine pH Ur Specific [place] Urine Protein Urine Glucose (UA) Urine Ketones Urine Blood Urine Nitrite Urine Bilirubin Urine Urobilinogen Ur Leukocyte Esterase Urine Microscopic RBC Urine Microscopic WBC Ur Squamous Epith Cells SARS CoV-2 RNA Rapid ALLISON Imaging studies - No head injury or facial fx's. Spine CT does not clearly say there are rib fx's, and CXR shows no fx's. ??? Education Provided to Patient and Family: Per staff trainer Follow-ups: With PCP Discharge Disposition: Home Hospital Course: Admitted for facial contusions/abrasions and reported left rib fractures. Pain not sig. Incidental finding of elevated INR, returned to normal at time of d/c. Plan: Home for rest. Resume home med. Recheck with PCP soon, particularly to monitor INR. This discharge done with a [id number] exam and documentation entailing 40 min.
--- NOTE | 2022-07-18 09:47 | OTDC ---
Date of Evaluation:07/07/22 Diagnosis:[Rib fracture 6-7-8, weakness, coagulopathy, Facial injury] Number of visits:[1] Last Date of Service:[07/07/22] Reason For Discharge:[Pt discharged to home.] Discharge Summary:[Pt to receive home health at home.] [place]
== END 2022-07-09 12:55 | disposition home or self-care (01) ==
LOC: ED 12:46 → INTOOBSV 15:40 → SCU 15:40
PROVIDERS: ADMIT Emergency Medicine Emergency Medical Services; ATTEND Emergency Medicine
DX: S00.83XA Contusion of other part of head, initial encounter; I48.91 Unspecified atrial fibrillation; R79.83 Abnormal findings of blood amino-acid level; S09.93XA Unspecified injury of face, initial encounter; Y99.9 Unspecified external cause status; Z79.899 Other long term (current) drug therapy; D68.9 Coagulation defect, unspecified; R53.1 Weakness; Z91.81 History of falling; W01.198A Fall on same level from slipping, tripping and stumbling with subsequent striking against other object, initial encounter; Z20.822 Contact with and (suspected) exposure to COVID-19; Z74.1 Need for assistance with personal care; Y92.9 Unspecified place or not applicable; I10 Essential (primary) hypertension; Z51.81 Encounter for therapeutic drug level monitoring; Z86.73 Personal history of transient ischemic attack (TIA), and cerebral infarction without residual deficits; S22.41XA Multiple fractures of ribs, right side, initial encounter for closed fracture; Z79.01 Long term (current) use of anticoagulants